=== PATIENT | female | born 1995 | race Caucasian/White ===

== ENCOUNTER 2021-07-23 16:23 | Emergency (ER) | payer SELFPAY ==
[~2021-07-23] VITALS: Ht 167 cm; Wt 116.0 kg
--- OUTSIDE RECORDS SUMMARY | 2021-07-23 16:29 | XMS REPORT | Clinical Summary ---
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 Active oxyCODONE-acetaminophen Take 1 tablet 15 tablet 0 (PERCOCET) 7.5-325 mg per by mouth 1 tabletIndications: pain every 4 (four) hours as needed for pain. Max Daily Dose: 6 tablets Active oxyCODONE-acetaminophen Take 1 tablet 4 tablet 0 (PERCOCET) 5-325 mg per by mouth 1 tabletIndications: pain every 4 (four) hours as needed for pain. Dispensed from ED Max Daily Dose: 6 tablets Active ondansetron (ZOFRAN ODT) Take 1 tablet 15 tablet 0 4 MG disintegrating (4 mg total) 1 tabletIndications: Nausea by mouth and vomiting every 8 (eight) hours as needed for nausea. Active Problems Problem Noted Date IUD threads lost 09/30/2019 Overview: Formatting of this note might be differ ent from the original. Added automatically from request for matty an [id number] Immunizations Name Administration Dates Next Due Tdap 10/07/2020 Family History Medical History Relation Name Comments No Known Problems Brother No Known Problems Father No Known Problems Maternal Grandfather No Known Problems Maternal Grandmother No Known Problems Mother No Known Problems Paternal Grandfather No Known Problems Paternal Grandmother No Known Problems Sister Relation Name Status Comments Brother Father Maternal Grandfather Maternal Grandmother Mother Paternal Grandfather Paternal Grandmother Sister Social History Date Tobacco Use Types Packs/Day Years Used Current Every Day Smoker Electronic Cigarettes Smokeless Tobacco: Never Used Tobacco Cessation: Ready to Quit: Yes Comments Alcohol Use Standard Drinks/Week OCCASSIONALLY Not Currently 0 (1 standard drink = 0.6 o z pure alcohol) Alcohol Habits Answer Date Recorded How often do you have a drink containing alcohol? No t asked How many drinks containing alcohol do you have on No t asked a typical day when you are drinking? How often do you have six or more drinks on one Not asked occasion? Comment: OCCASSIONALLY 10/06/2020 Sex Assigned at Date Recorded Not on file Last Filed Vital Signs Reading Time Taken Comments Vital Sign 135/82 11/04/2020 11:17 PM EXTERMINATOR HELPER Blood Pressure 94 11/04/2020 10:20 PM EXTERMINATOR HELPER Pulse 36.6 C (97.9 F) 11/04/2020 10:25 PM EXTERMINATOR HELPER Temperature 20 11/04/2020 10:20 PM EXTERMINATOR HELPER Respiratory Rate 94% 11/04/2020 11:17 PM EXTERMINATOR HELPER Oxygen Saturation - - Inhaled Oxygen Concentration 129 kg (284 lb 4.8 oz) 11/04/2020 10:20 PM EXTERMINATOR HELPER Weight 167.6 cm (5' 6") 11/04/2020 10:20 PM EXTERMINATOR HELPER Height 45.89 11/04/2020 10:20 PM EXTERMINATOR HELPER Body Mass Index Plan of Treatment Health Maintenance Due Date Last Done Comments Tobacco Cessation 1993 Counseling # Pneumococcal Vaccine: 12/05/1999 Pediatrics (0 to 5 Years) and At-Risk Patients (6 to 64 Years) (1 of 2 - PPSV23) COVID-19 Vaccine (1) 2005 Cervical Cancer Screening 2014 via Pap Smear Influenza Vaccine (#1) 2021 Td/Tdap# 10/07/2030 10/07/2020 HPV Vaccine Aged Out No longer eligible based on patient's age to complete this topic Results Not on filefrom Last 3 Months Advance Directives For more information, please contact: [phone] Patient Contracts Representative Explanation Type Date Recorded Advance Directives and Living Will Power of Process Design Engineer Health Care Directive
[2021-07-23] MEDS ORDERED: morphine INJ 10 MG/ML 1ML (SYR OR VIAL) IVP STA (16:36)
[2021-07-23] MEDS ORDERED: KETOROLAC 30 MG/ML VIAL IVP ONE (16:45)
[2021-07-23] MEDS ORDERED: ONDANSETRON 4 MG/2 ML (SDV) Z0FRAN IVP ONE (16:45)
[2021-07-23 16:47] LABS: BILIRUBIN,URINE NEGATIVE (NEGATIVE); CLARITY,URINE CLEAR; COLOR,URINE YELLOW; GLUCOSE, URINE (UA) NEGATIVE (NEGATIVE); KETONES,URINE NEGATIVE (NEGATIVE); LEUKOCYTE ESTERASE ,URINE NEGATIVE (NEGATIVE); NITRITE,URINE NEGATIVE (NEGATIVE); PROTEIN,URINE NEGATIVE (NEGATIVE)
--- NOTE | 2021-07-23 16:51 | ED General ---
General Chief Complaint: - Reproductive Stated Complaint: LOWER BACK/SIDE PAIN,VOMITTING Nursing Triage Note: PT REPORTS LEFT SIDED FLANK AND BACK PAIN THAT STARTED 2 DAYS. SHE VOMITED 30 MINS AGO. PT HAS NOT TAKEN TAKEN ANYTHING FOR PAIN. History of Present Illness Date Seen by Provider: Jul 23, 2021 Time Seen by Provider: 16:49 Initial Comments Patient presenting to the emergency department for evaluation of left flank pain that started approximately 30 minutes prior to arrival she said it was sudden and intense associated with nausea and vomiting. She denies fevers chills dysuria or hematuria. She says she had a kidney stone approximately 7 years ago and this feels similar and she says at that time they attempted lithotripsy that did not help and she did require stenting but does not remember the name of her urologist. Patient appears uncomfortable but is nontoxic. Allergies and Home Medications Allergies Coded Allergies: No Known Drug Allergies (Unverified , 07/23/21) Patient Home Medication List Home Medication List Reviewed: Yes Review of Systems Review of Systems Constitutional: no symptoms reported EENTM: no symptoms reported Respiratory: no symptoms reported Cardiovascular: no symptoms reported Gastrointestinal: abdominal pain, nausea, vomiting Genitourinary: no symptoms reported Musculoskeletal: back pain Skin: no symptoms reported Psychiatric/Neurological: No Symptoms Reported All Other Systems Reviewed Negative Unless Noted: Yes Past Ixlzwes-Nsqsjf-Lxnwyw Hx Patient Social History Tobacco Use?: Yes Tobacco type used: Cigarettes Smoking Status: Current Everyday Smoker Use of E-Cig and/or Vaping dev: No Substance use?: No Alcohol Use?: No Past Medical History Surgery/Hospitalization HX: HX OF KIDNEY STONES, LAP WIL, Physical Exam Vital Signs Vital Signs - First Documented 07/23/21 16:41 Temp 36.6 Pulse 95 Resp 16 B/P (MAP) 139/99 (112) Pulse Ox 100 O2 Delivery Room Air Capillary Refill : Less Than 3 Seconds Height, Weight, BMI Height: '" Weight: lbs. oz. kg; 41.00 BMI Method: General Appearance: No Apparent Distress, WD/WN HEENT: PERRL/EOMI Neck: Supple Respiratory: Lungs Clear, No Respiratory Distress Cardiovascular: Regular Rate, Rhythm Gastrointestinal: Non Tender, Soft Extremity: Normal Capillary Refill Neurologic/Psychiatric: Alert, Oriented x3 Skin: Warm/Dry Progress/Results/Core Measures Suspected Sepsis SIRS Temperature: Pulse: 95 Respiratory Rate: 16 Laboratory Tests 07/23/21 16:35: White Blood Count 14.3H Blood Pressure 139 /99 Mean: 112 Laboratory Tests 07/23/21 16:35: Creatinine 0.79, Platelet Count 543H, Total Bilirubin 0.2 Results/Orders Lab Results Laboratory Tests Test 07/23/21 16:26 07/23/21 16:35 Range/Units Urine Color YELLOW Urine Clarity CLEAR Urine pH 6.0 5-9 Urine Specific [place] 1.020 1.016-1.022 Urine Protein NEGATIVE NEGATIVE Urine Glucose (UA) NEGATIVE NEGATIVE Urine Ketones NEGATIVE NEGATIVE Urine Nitrite NEGATIVE NEGATIVE Urine Bilirubin NEGATIVE NEGATIVE Urine Urobilinogen 0.2 < = 1.0 MG/DL Urine Leukocyte Esterase NEGATIVE NEGATIVE Urine RBC (Auto) NEGATIVE NEGATIVE Urine RBC NONE /HPF Urine WBC 0-2 /HPF Urine Squamous Epithelial Cells 5-10 /HPF Urine Crystals NONE /LPF Urine Bacteria NEGATIVE /HPF Urine Casts NONE /LPF Urine Mucus SMALL H /LPF Urine Culture Indicated NO Urine Test NEGATIVE NEGATIVE White Blood Count 14.3 H 4.3-11.0 10^3/uL Red Blood Count 5.10 3.80-5.11 10^6/uL Hemoglobin 14.3 11.5-16.0 g/dL Hematocrit 44 35-52 % Mean Corpuscular Volume 86 80-99 fL Mean Corpuscular Hemoglobin 28 25-34 pg Mean Corpuscular Hemoglobin Concent 33 32-36 g/dL Red Cell Distribution Width 13.2 10.0-14.5 % Platelet Count 543 H 130-400 10^3/uL Mean Platelet Volume 9.2 9.0-12.2 fL Neutrophils (%) (Auto) 68 42-75 % Lymphocytes (%) (Auto) 22 12-44 % Monocytes (%) (Auto) 8 0-12 % Eosinophils (%) (Auto) 2 0-10 % Basophils (%) (Auto) 1 0-10 % Neutrophils # (Auto) 9.6 H 1.8-7.8 X 10^3 Lymphocytes # (Auto) 3.1 1.0-4.0 X 10^3 Monocytes # (Auto) 1.2 H 0.0-1.0 X 10^3 Eosinophils # (Auto) 0.2 0.0-0.3 10^3/uL Basophils # (Auto) 0.1 0.0-0.1 10^3/uL Immature Granulocyte # (Auto) 0.1 0.0-0.1 10^3/uL Neutrophils % (Manual) 63 % Lymphocytes % (Manual) 18 % Monocytes % (Manual) 5 % Eosinophils % (Manual) 2 % Basophils % (Manual) 1 % Band Neutrophils 5 % Atypical Lymphocytes 5 % Reactive Lymphocytes 1 % Platelet Estimate INCREASED Blood Morphology Comment NORMAL Sodium Level 139 135-145 MMOL/L Potassium Level 4.2 3.6-5.0 MMOL/L Chloride Level 104 98-107 MMOL/L Carbon Dioxide Level 24 21-32 MMOL/L Anion Gap 11 5-14 MMOL/L Blood Urea Nitrogen 15 7-18 MG/DL Creatinine 0.79 0.60-1.30 MG/DL Estimat Glomerular Filtration Rate 87 BUN/Creatinine Ratio 19 Glucose Level 114 H 70-105 MG/DL Calcium Level 9.6 8.5-10.1 MG/DL Corrected Calcium 9.4 8.5-10.1 MG/DL Total Bilirubin 0.2 0.1-1.0 MG/DL Aspartate Amino Transf (AST/SGOT) 22 5-34 U/L Alanine Aminotransferase (ALT/SGPT) 12 0-55 U/L Alkaline Phosphatase 104 40-136 U/L Total Protein 7.8 6.4-8.2 GM/DL Albumin 4.3 3.2-4.5 GM/DL My Orders Orders - GAVIN PHAM DO Cbc With Automated Diff (07/23/21 16:36) Comprehensive Metabolic Panel (07/23/21 16:36) Hcg,Qualitative Urine (07/23/21 16:36) Ua Culture If Indicated (07/23/21 16:36) Iv/Invasive Line Insertion .IV start (07/23/21 16:36) Ct Abdomen/Pelvis Wo (07/23/21 16:36) Ondansetron Injection (Zofran Injectio (07/23/21 16:45) Morphine Injection (Morphine Injection (07/23/21 16:36) Ketorolac Injection (Toradol Injection) (07/23/21 16:45) Manual Differential (07/23/21 16:35) Medications Given in ED Current Medications Medications Dose Ordered Sig/Charmaine Route Start Time Stop Time Status Last Admin Dose Admin Ketorolac Tromethamine 15 mg ONCE ONCE IVP 07/23/21 16:45 07/23/21 16:46 DC 07/23/21 16:59 15 MG Ondansetron HCl 4 mg ONCE ONCE IVP 07/23/21 16:45 07/23/21 16:46 DC 07/23/21 16:58 4 MG Vital Signs/I&O 07/23/21 16:41 Temp 36.6 Pulse 95 Resp 16 B/P (MAP) 139/99 (112) Pulse Ox 100 O2 Delivery Room Air Capillary Refill : Less Than 3 Seconds Blood Pressure Mean: 112 Progress Note : Progress Note Patient has symptoms consistent with prior kidney stones I will check labs imaging treat symptoms and reassess. Patient's labs show leukocytosis but there is no signs of infection on her CT scan or urinalysis and her pain has resolved in the emergency department. I told her there could be alternative diagnoses such as ulcer or gastritis or could cause her pain. Her vital signs are normal there is no signs of pulmonary embolism or other acute pathology and she appears well so I will discharge her in stable condition told her to take in a soft nonirritating diet and I will prescribe her supportive medications for pain and nausea. I told her to follow- up with her primary care provider within 2 to 3 days for recheck and come back to emergency department sooner with worsening pain fevers vomiting or other general concerns. Patient aware and agreeable with plan and verbalized underst anding the above instructions. Departure Impression Primary Impression: Left flank pain Additional Impressions: Abdominal pain Qualified Codes: R10.12 - Left upper quadrant pain Leukocytosis Disposition: 01 HOME, SELF-CARE Condition: Stable Departure-Patient Inst. Referrals: NO,LOCAL PHYSICIAN (PCP/Family) Primary Care Physician Patient Instructions: Acute Pain, Adult (DC) Scripts Ondansetron (Ondansetron Odt) 4 Mg Tab.rapdis 4 MG PO Q6H PRN for NAUSEA/VOMITING, #10 TAB 0 Refills Prov: GAVIN PHAM DO 07/23/21 Hydrocodone/Acetaminophen (Hydrocodone-Acetamin 5-325 mg) 1 Each Tablet 1 TAB PO Q4H PRN for PAIN-MODERATE (5-7), #10 TAB Prov: GAVIN PHAM DO 07/23/21 GAVIN PHAM DO Jul 23, 2021 16:51
[2021-07-23 16:54] LABS: HEMATOCRIT 44 % (35-52); HEMOGLOBIN 14.3 g/dL (11.5-16.0); MEAN CORPUSCULAR HEMOGLOBIN 28 pg (25-34); MEAN CORPUSCULAR HGB CONC 33 g/dL (32-36); MEAN CORPUSCULAR VOLUME 86 fL (80-99); WHITE BLOOD COUNT 14.3 10^3/uL (4.3-11.0)
[2021-07-23 16:55] LABS: BASOPHILS # (AUTO) 0.1 10^3/uL (0.0-0.1); BASOPHILS % (AUTO) 1 % (0-10); EOSINOPHILS # (AUTO) 0.2 10^3/uL (0.0-0.3); EOSINOPHILS % (AUTO) 2 % (0-10); LYMPHOCYTES # (AUTO) 3.1 X 10^3 (1.0-4.0); LYMPHOCYTES % (AUTO) 22 % (12-44); MEAN PLATELET VOLUME 9.2 fL (9.0-12.2); MONOCYTES # (AUTO) 1.2 X 10^3 (0.0-1.0); MONOCYTES % (AUTO) 8 % (0-12); NEUTROPHILS # (AUTO) 9.6 X 10^3 (1.8-7.8); NEUTROPHILS % (AUTO) 68 % (42-75); PLATELET COUNT 543 10^3/uL (130-400)
[2021-07-23 16:56] LABS: BACTERIA,URINE NEGATIVE /HPF; WBC,URINE 0-2 /HPF
--- NOTE | 2021-07-23 17:07 | Diagnostic Imaging Report ---
PROCEDURE: CT abdomen and pelvis without contrast. TECHNIQUE: Multiple contiguous axial images were obtained through the abdomen and pelvis without the use of intravenous contrast. Auto Exposure Controls were utilized during the CT exam to meet ALARA standards for radiation dose reduction. INDICATION: Left flank pain. COMPARISON: No prior studies are available for comparison. FINDINGS: The lung bases are clear. The liver is unremarkable. Gallbladder is surgically absent. There is no biliary ductal dilatation. The pancreas and spleen are unremarkable. No adrenal mass is identified. Right kidney is without calculi. There are numerous nonobstructing calculi in the left kidney, largest in the lower pole measuring 4 mm. No ureteral calculi or hydronephrosis is seen. There are no bladder calculi identified. Aorta is nonaneurysmal. The small and large bowel loops are normal in caliber. There is no obstruction. The uterus contains an IUD. There are numerous calcifications in the pelvis consistent with phleboliths. No free fluid is seen. There is no fluid collection. IMPRESSION: Nonobstructing left-sided nephrolithiasis. No ureteral calculi or hydronephrosis is detected. Dictated by: Dictated on workstation # [id number]
[2021-07-23 17:08] LABS: ATYPICAL LYMPHOCYTES 5 %; BAND NEUTROPHILS 5 %; BASOPHILS % (MANUAL) 1 %; EOSINOPHILS % (MANUAL) 2 %; LYMPHOCYTES % (MANUAL) 18 %; MONOCYTES % (MANUAL) 5 %; NEUTROPHILS % (MANUAL) 63 %; PLATELET ESTIMATE INCREASED; RBC MORPH NORMAL; REACTIVE LYMPHOCYTES 1 %
[2021-07-23 17:09] LABS: BILIRUBIN,TOTAL 0.2 MG/DL (0.1-1.0); CALCIUM 9.6 MG/DL (8.5-10.1); CREATININE SERUM 0.79 MG/DL (0.60-1.30); POTASSIUM 4.2 MMOL/L (3.6-5.0)
[2021-07-23 17:10] LABS: ALBUMIN 4.3 GM/DL (3.2-4.5); TOTAL PROTEIN 7.8 GM/DL (6.4-8.2)
[2021-07-23] MEDS ORDERED: ONDA4TAB11 PO (17:27)
[2021-07-23] MEDS ORDERED: ACHD5005 PO (17:27)
[2021-07-23 17:29] VITALS: BP 148/82
== END 2021-07-23 17:30 | disposition home or self-care (01) ==
LOC: ER FS 16:24
DX: R10.9 Unspecified abdominal pain (principal); D72.829 Elevated white blood cell count, unspecified; F17.210 Nicotine dependence, cigarettes, uncomplicated
CPT/HCPCS: 36415; 74176; 80053; 81000; 84703; 85007; 85027

== ENCOUNTER 2023-04-14 13:17 | Emergency (ER) | payer SELFPAY ==
[~2023-04-14] VITALS: Ht 157 cm; Wt 104.0 kg
[~2023-04-14 13:17] MED LIST: ACHD5005 PO; ONDA4TAB11 PO
--- NOTE | 2023-04-14 13:33 | ED Back Pain ---
General Chief Complaint: Back Problems Stated Complaint: T-SPINE/HIP PAIN History of Present Illness Date Seen by Provider: Apr 14, 2023 Time Seen by Provider: 13:25 Initial Comments 27 yr F is here with c/o upper and lower back pain for the past 2 months and worsening. 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 Pt states she wants to go to a chiropractor but they will not see her until she gets spine x-rays done. Pt does not have a PCP. Pt is unable to sit. Denies fever, bowel and bladder irregularities, sensory loss, headache., falls, trauma, injury. Allergies and Home Medications Allergies Coded Allergies: No Known Drug Allergies (Unverified , 07/23/21) Patient Home Medication List Home Medication List Reviewed: Yes Hydrocodone/Acetaminophen (Hydrocodone-Acetamin 5-325 mg) 1 Each Tablet, 1 TAB PO Q4H PRN for PAIN-MODERATE (5-7) Prescribed by: GAVIN PHAM on 07/23/21 1728 Ondansetron (Ondansetron Odt) 4 Mg Tab.rapdis, 4 MG PO Q6H PRN for NAUSEA/VOMITING Prescribed by: GAVIN PHAM on 07/23/21 1727 Review of Systems Constitutional: no symptoms reported EENTM: no symptoms reported Respiratory: no symptoms reported Cardiovascular: no symptoms reported Gastrointestinal: no symptoms reported Genitourinary: no symptoms reported Musculoskeletal: back pain Skin: no symptoms reported Psychiatric/Neurological: No Symptoms Reported Past Cwtstou-Zsmxfn-Vibonw Hx Past Medical History Surgery/Hospitalization HX: HX OF KIDNEY STONES, LAP WIL, Physical Exam Vital Signs Vital Signs - First Documented 04/14/23 13:35 Temp 36.8 Pulse 85 Resp 16 B/P (MAP) 120/107 (111) Pulse Ox 100 O2 Delivery Room Air Capillary Refill : Height, Weight, BMI Height: '" Weight: lbs. oz. kg; 41.00 BMI Method: General Appearance: Moderate Distress, Obese HEENT: PERRL/EOMI Neck: Full Range of Motion, Normal Inspection, Non Tender, Supple Back: Normal Inspection, No Vertebral Tenderness, Decreased Range of Motion, Muscle Spasm (In the thoracic and lumbar spine) Extremity: Normal Inspection, Normal Range of Motion Neurologic/Psychiatric: Alert, Oriented x3, No Motor/Sensory Deficits, Normal Mood/Affect, editor continuity and script II-XII Norm as Tested Skin: Normal Color Lymphatic: No Adenopathy Progress/Results/Core Measures Results/Orders My Orders Orders - KAROLYN ALFORD MD Spine Entire 2-3 View (04/14/23 13:33) Ketorolac Injection (Ketorolac Injection (04/14/23 13:45) Dexamethasone Injection (Dexamethasone (04/14/23 13:45) Medications Given in ED Current Medications Medications Dose Ordered Sig/Charmaine Route Start Time Stop Time Status Last Admin Dose Admin Dexamethasone Sodium Phosphate 10 mg ONCE ONCE IM 04/14/23 13:45 04/14/23 13:46 DC 04/14/23 13:47 10 MG Ketorolac Tromethamine 30 mg ONCE ONCE IM 04/14/23 13:45 04/14/23 13:46 DC 04/14/23 13:47 30 MG Vital Signs/I&O 04/14/23 04/14/23 13:35 13:47 Temp 36.8 36.8 Pulse 85 Resp 16 B/P (MAP) 120/107 (111) Pulse Ox 100 O2 Delivery Room Air Progress Progress Note : Progress Note 1. BACK PAIN. PARASPINAL MUSCLE SPASM IN THORACIC & LUMBAR REGION: - XR SPINE: normal - Toradol im/ Dexa 10mg im givenin ER - Advised lidoderm patches, Naproxen twice a day and Tylenol every 4 hours. - Prescription given for Flexeril twice daily for [address] to drive after taking the medication. - Advised heat application and gentle stretching. - Follow up with PCP in the next 7 to 10 days. Make appointment. -The patient was seen in the ED, and treated appropriately to presentation at a specific point in time. Patient is informed that there is a possibility that disease and illness can evolve and change in acuity rapidly or slowly after patient is discharged from the ER. Precautionary advice given to the patient for immediate return to ER if symptoms worsen or do not resolve, and to seek emergency care sooner rather than later. Pt also advised on the importance of PCP follow up and compliance with management and follow up plan with PCP and/or specialist, as this is part of the management plan. Pt verbally expressed understanding. Diagnostic Imaging Diagonstic Imaging: Xray Plain Films/CT/US/NM/MRI: other Comments [facility] [place] NAME: RENZO COATES [facility] REC#: [id number] PT STATUS: REG ER : 1995 PHYSICIAN: KAROLYN ALFORD MD ADMIT DATE: 04/14/23/ER FS Draft Date of Exam:04/14/23 SPINE ENTIRE 2-3 VIEW CLINICAL HISTORY: Mid and lower back pain. COMPARISON: 07/23/2021. TECHNIQUE: Four views of the thoracic and lumbar spine. FINDINGS: There is no acute fracture or dislocation of the thoracic and lumbar spine. Alignment is anatomic. The vertebral body heights are maintained. No focal osseous lesions are seen. The included lungs are clear. IMPRESSION: 1. No acute fracture or dislocation in the thoracic and lumbar spine. Dictated on workstation # [id number] Dict: 04/14/23 1412 Trans: 04/14/23 1418 [id number] Interpreted by: ANAIS HARE DO Electronically signed by: Departure Impression Primary Impression: Paraspinal muscle spasm Disposition: 01 HOME, SELF-CARE Condition: Stable Departure-Patient Inst. Referrals: NO,LOCAL PHYSICIAN (PCP/Family) Primary Care Physician Patient Instructions: Active Range of Motion Exercises, Back and Hips, Back Exercises, Back Extension Exercises, Back Flexion Strengthening Exercises, Back Flexion Stretching Exercises, Back Muscle Strain (DC), Core Strengthening Exercises on Back or on Hands and Knees, Muscle Spasms (DC), Using Heat for Pain Add. Discharge Instructions: - Advised lidoderm patches, Naproxen twice a day and Tylenol every 4 hours. - Prescription given for Flexeril twice daily for [address] to drive after taking the medication. - Advised heat application and gentle stretching. - Follow up with PCP in the next 7 to 10 days. Make appointment. All discharge instructions reviewed with patient and/or family. Voiced understanding. Work/School Note: Work Release Form Date Seen in the Emergency Department: Apr 14, 2023 Return to Work: Apr 16, 2023 Restrictions: Need Release from Doctor Other Restrictions Listed Below: No heavy lifting until cleared by primary care doctor KAROLYN ALFORD MD Apr 14, 2023 13:33
[2023-04-14 13:35] VITALS: BP 120/107
[2023-04-14] MEDS ORDERED: KETOROLAC INJ 30 MG/ML VIAL IM ONE (13:45)
[2023-04-14] MEDS ORDERED: dexAMETHasone INJ 10 MG/ML 1 ML VIAL IM ONE (13:45)
--- NOTE | 2023-04-14 14:18 | Diagnostic Imaging Report ---
CLINICAL HISTORY: Mid and lower back pain. COMPARISON: 07/23/2021. TECHNIQUE: Four views of the thoracic and lumbar spine. FINDINGS: There is no acute fracture or dislocation of the thoracic and lumbar spine. Alignment is anatomic. The vertebral body heights are maintained. No focal osseous lesions are seen. The included lungs are clear. IMPRESSION: 1. No acute fracture or dislocation in the thoracic and lumbar spine. Dictated by: Dictated on workstation # [id number]
[2023-04-14] MEDS ORDERED: CYCL5TAB PO (14:39)
== END 2023-04-14 14:45 | disposition home or self-care (01) ==
LOC: EDUNIT# 13:17 → ER FS 13:20
DX: M62.830 Muscle spasm of back (principal); E66.9 Obesity, unspecified; Z68.41 Body mass index [BMI] 40.0-44.9, adult
CPT/HCPCS: 72082

== ENCOUNTER 2023-06-13 14:22 | Emergency (ER) | payer SELFPAY ==
[~2023-06-13] VITALS: Ht 167 cm; Wt 106.9 kg
[~2023-06-13 14:22] MED LIST changes: +CYCL5TAB PO
[2023-06-13 14:32] VITALS: BP 113/67
--- NOTE | 2023-06-13 14:38 | ED Lower Extremity ---
General Stated Complaint: WOUND CHECK Source: patient Exam Limitations: no limitations History of Present Illness Date Seen by Provider: Jun 13, 2023 Time Seen by Provider: 14:25 Initial Comments 27-year-old female presents for a wound to her right lateral great toe. She had surgery on and had the stitches removed yesterday. She is afraid the central portion may be opened up. She states there has been some clear drainage. She is taken the Steri-Strips off and replaced in the months. No fevers or chills All other systems reviewed and negative except documented per HPI. Voice recognition software was used to help create this chart Allergies and Home Medications Allergies Coded Allergies: No Known Drug Allergies (Unverified , 07/23/21) Patient Home Medication List Home Medication List Reviewed: Yes Cyclobenzaprine HCl (Cyclobenzaprine HCl) 5 Mg Tablet, 5 MG PO BID Prescribed by: KAROLYN ALFORD MD on 04/14/23 1439 Hydrocodone/Acetaminophen (Hydrocodone-Acetamin 5-325 mg) 1 Each Tablet, 1 TAB PO Q4H PRN for PAIN-MODERATE (5-7) Prescribed by: GAVIN PHAM on 07/23/21 1728 Ondansetron (Ondansetron Odt) 4 Mg Tab.rapdis, 4 MG PO Q6H PRN for NAUSEA/VOMITING Prescribed by: GAVIN PHAM on 07/23/21 1727 Review of Systems Constitutional: see HPI Past Dzbmtwh-Nrsnze-Ufdxmi Hx Patient Social History Tobacco Use?: No Use of E-Cig and/or Vaping dev: No Substance use?: No Alcohol Use?: No Past Medical History Surgery/Hospitalization HX: HX OF KIDNEY STONES, LAP WIL, Physical Exam Vital Signs Capillary Refill : Height, Weight, BMI Height: '" Weight: lbs. oz. kg; 42.00 BMI Method: General Appearance: WD/WN, no apparent distress Feet: right foot other (2 Steri-Strips remain in place to the right lateral foot. The patient had removed the top 2 days prior to like entry into the room. The wound appears well approximated with no drainage. There are some bruising surrounding which is normal in appearance. There is no evidence for infection.) Departure Communication (Admissions) Patient is hemodynamically stable. No evidence for infection. She had taken off 2 of the Steri-Strips prior to my entry into the room for unknown reasons. The wound is well approximated and healing Impression Primary Impression: Encounter for postoperative wound check Disposition: HOME, SELF-CARE Condition: Stable Departure-Patient Inst. Referrals: NO,LOCAL PHYSICIAN (PCP/Family) Primary Care Physician Patient Instructions: Wound Care ED Add. Discharge Instructions: The wound does not appear infected. You leave the Steri-Strips on as long as possible to prevent the wound from opening up. There is no evidence of infection currently. Follow-up with your surgeon as scheduled. JUAN CARLOS RM DO Jun 13, 2023 14:38
== END 2023-06-13 14:44 | disposition home or self-care (01) ==
LOC: EDUNIT# 14:22 → ER FS 14:24
DX: Z48.01 Encounter for change or removal of surgical wound dressing (principal)
CPT/HCPCS: 99281